=== PATIENT | male | born 1940 | race Caucasian/White ===

== ENCOUNTER 2018-04-14 18:40 | Inpatient (IN) | payer MEDICARE ==
[2018-04-14] MEDS ORDERED: NS 0.9% 1000 ML* 2,000 ML IV ONE (19:31)
--- NOTE | 2018-04-14 20:04 | RAD ---
HISTORY: Syncope, head injury COMPARISONS: None TECHNIQUE: Multiple contiguous axial CT scans were obtained of the head without intravenous contrast. FINDINGS: HEMORRHAGE/INFARCT: There is no hemorrhage or acute infarct. MASSES/SHIFT: There is no mass or shift. EXTRA-AXIAL SPACES: There are no extra-axial fluid collections. SULCI AND VENTRICLES: The sulci and ventricles are normal in size and position for the patient's stated age. CEREBRUM: There are no focal parenchymal abnormalities. BRAINSTEM: There are no focal parenchymal abnormalities. CEREBELLUM: There are no focal parenchymal abnormalities. VESSELS: The vessels are grossly normal. PARANASAL SINUSES: There is no abnormal fluid level within the right maxillary sinus. ORBITS: The orbits are unremarkable. BONES AND SOFT TISSUE: There is comminuted fractures through the right axilla that is not completely evaluated on the current examination. OTHER: None IMPRESSION: 1. RIGHT MAXILLARY FRACTURE NOT COMPLETELY EVALUATED ON THE CURRENT EXAMINATION. RECOMMEND CONSIDERATION OF CT OF THE FACIAL BONES. 2. NO ACUTE INTRACRANIAL PATHOLOGY
--- NOTE | 2018-04-14 20:07 | RAD ---
CLINICAL HISTORY: Abdominal pain, syncope, rule out abdominal aortic aneurysm COMPARISON: None TECHNIQUE: Multiple contiguous axial CT scans were obtained of the abdomen and pelvis, without intravenous contrast enhancement. Coronal and sagittal multiplanar reformations are submitted for review. Oral contrast was not administered. FINDINGS: The study is limited by the lack of intravenous contrast. This limits evaluation of the solid organs and vasculature. LUNG BASES: There is linear atelectasis of the right lower lobe. LIVER: There are low-attenuation lesions of the liver most consistent with hepatic cysts. BILE DUCTS: There is no intrahepatic or extrahepatic biliary dilatation. GALLBLADDER: The gallbladder is normal, without pericholecystic inflammatory change. PANCREAS: The pancreas is normal, without mass or ductal dilatation. SPLEEN: Normal in size and appearance. UPPER GI TRACT: Evaluation of the gastrointestinal tract is limited by incomplete gastric distention. The upper GI tract is unremarkable. SMALL BOWEL AND MESENTERY: The small bowel is normal in contour, course, and caliber. There is no obstruction or dilatation. COLON: The colon is normal in contour, course, caliber. There is no pericolonic inflammatory change. There is a tubular, vermiform, hollow viscus that is blind ending, and originates from the cecum, consistent with a normal appendix. There is no periappendiceal inflammatory change. This is best seen on coronal images 44 through 52. ADRENALS: Normal bilaterally. KIDNEYS: The kidneys are normal in shape, size, contour, and axis. There is no hydronephrosis or nephrolithiasis. BLADDER: The bladder is smooth in contour. PELVIC ORGANS: The prostate is diffusely enlarged. The seminal vesicles are symmetric. AORTA: There is calcific atherosclerotic disease of the abdominal aorta and its branches, without aneurysmal dilatation IVC: Unremarkable LYMPH NODES: There is no lymphadenopathy by size criteria. ABDOMINAL WALL: There is no evidence for abdominal wall hernia. BONES AND SOFT TISSUES: The patient is status post left hip arthroplasty. Degenerative changes are noted in the spine. OTHER: None IMPRESSION: ATHEROSCLEROSIS. NO ABDOMINAL AORTIC ANEURYSM. NO ACUTE NONCONTRAST CT PATHOLOGY OF THE VISUALIZED ABDOMEN OR PELVIS.
[2018-04-14] MEDS ORDERED: Morphine VIAL* 4 MG/ML VIAL (1 ml vial) IV ONE (20:21)
[2018-04-14 20:24] LABS: ABS Basophils 0.1 10^3/ul (0-0.2); ABS Eosinophils 0 10^3/ul (0-0.6); ABS Lymphocytes 0.7 10^3/ul (1.0-4.8); ABS Monocytes 1.5 10^3/ul (0-0.8); ABS Neutrophils 18.6 10^3/ul (1.5-7.7); ABS Nucleated RBC 0 10^3/ul; Eosinophil % 0.2 % (0-6); Hematocrit 38 % (42-52); Hemoglobin 13.3 g/dl (14.0-18.0); Lymphocyte % 3.5 % (25-47); Mean Corpuscular HGB Conc 35 g/dl (31-36); Mean Corpuscular Hemoglobin 31 pg (27-31); Mean Corpuscular Volume 88 fL (80-94); Mean Platelet Volume 7.2 um3 (7.4-10.4); Nucleated Red Blood Cells % 0; Platelet Count 185 10^3/ul (150-450); Red Cell Distribution Width 13 % (10.5-15); White Blood Count 20.9 10^3/ul (3.5-10.8)
[2018-04-14 20:43] LABS: EGFR Non-African American 49.7 (>60)
[2018-04-14 22:22] LABS: Urine Appearance Clear; Urine Blood 1+ (Negative); Urine Color Yellow; Urine Ketones Negative (Negative); Urine Protein Negative (Negative); Urine Specific Gravity 1.018 (1.010-1.030); Urine Urobilinogen Negative (Negative)
[2018-04-14] MEDS ORDERED: HYDROcodone/ACETAMIN 5-325 MG* 1 TAB PO PRN (22:48)
[2018-04-14] MEDS ORDERED: Senna TAB PO PRN (22:58)
[2018-04-14] MEDS ORDERED: Ondansetron 40 MG VIAL* 2 MG/ML 20 ML VIAL IV PRN (22:58)
[2018-04-14] MEDS ORDERED: Docusate CAP* 100 MG PO PRN (22:58)
[2018-04-14] MEDS ORDERED: Al Hydrox/Mg Hydrox/Simet LIQ* 30 ML UDC PO PRN (22:58)
[2018-04-14] MEDS ORDERED: Morphine VIAL* 4 MG/ML VIAL (1 ml vial) IV PRN (22:58)
--- NOTE | 2018-04-14 23:06 | ED ---
Gosia Acharya Julia, scribed for Juan Carlos Regalado MD on 04/14/18 at 1935 . Syncope/Near Syncope - HPI Summary HPI Summary: This patient is a 78 year old M BIBA to [facility] accompanied by his and children due to a syncopal event prior to arrival. Around 15:30 today he started feeling nauseous with abdominal pain. He took some Tums and Pepto- Bismol around 16:30 without relief. Later he felt the urge to vomit with retching and diaphoresis, but could not due to previous GERD surgery. He then lost consciousness, defecated himself ,and hit his face on the floor, resulting in significant epistaxis that is currently resolved. Patient reports right shoulder pain. Medications reviewed with patient. PMHx includes HTN, GERD, and chronic low back pain - History Of Current Complaint Time Seen by Provider: 04/14/18 19:23 Hx Obtained From: Patient Onset/Duration: Sudden Onset Timing: Frequency Of Episodes - 1 Context: Loss Of Consciousness Associated Head Trauma: Yes Associated Signs And Symptoms: Diarrhea, Diaphoresis, Head Trauma (Remote), Vomiting, Other - abdominla pain - Allergies/Home Medications Allergies/Adverse Reactions: Allergies Allergy/AdvReac Type Severity Reaction Status Date / Time No Known Allergies Allergy Verified 04/14/18 20:39 PMH/Surg Hx/FS Hx/Imm Hx Cardiovascular History: Reports: Hx Hypertension GI History: Reports: Hx Gastroesophageal Reflux Disease Musculoskeletal History: Reports: Hx Back Problems Infectious Disease History: Denies: Traveled Outside the [place] in Last 30 Days - Family History Known Family History: Positive: Hypertension - Social History Lives: With Family Review of Systems Positive: Skin Diaphoresis Positive: Abdominal Pain, Vomiting, Diarrhea, Nausea Positive: Myalgia All Other Systems Reviewed And Are Negative: Yes Physical Exam - Summary Physical Exam Summary: Appearance: Well-appearing, Well-nourished, lying in bed comfortably Skin: Warm, dry, no obvious rash Eyes: sclera anicteric, no conjunctiva pallor ENT: mucous membranes moist, pharynx appears normal, no septal hematoma, R periorbital hematoma Neck: Supple, nontender, good ROM Respiratory: Clear to auscultation, no signs of respiratory distress Cardiovascular: Normal S1, S2. No murmurs. Normal distal pulses in tibial and radial bilaterally. Abdomen: Soft, nontender, normal active bowel sounds present, no palpable masses Musculoskeletal: Strength/ROM Intact, pain by left shoulder blade, trace pitting edema in legs Neurological: A&Ox3, awake and alert, mentation is normal, speech is fluent and appropriate Psychiatric: affect is normal, does not appear anxious or depressed Triage Information Reviewed: Yes Vital Signs On Initial Exam: Initial Vitals Temp Pulse Resp BP Pulse Ox 37.1 C 92 18 155/56 96 04/14/18 19:43 04/14/18 19:43 04/14/18 19:43 04/14/18 19:43 04/14/18 19:43 Vital Signs Reviewed: Yes Diagnostics - Vital Signs Vital Signs Temp Pulse Resp BP Pulse Ox 04/14/18 21:00 74 16 95 04/14/18 20:52 74 17 141/72 94 04/14/18 20:40 16 04/14/18 20:21 77 17 152/70 96 04/14/18 19:43 37.1 C 92 18 155/56 96 - Laboratory Lab Results: Lab Results 04/14/18 04/14/18 04/14/18 Range/Units 20:14 20:14 20:14 WBC 20.9 H (3.5-10.8) 10^3/ul RBC 4.30 (4.0-5.4) 10^6/ul Hgb 13.3 L (14.0-18.0) g/dl Hct 38 L (42-52) % MCV 88 (80-94) fL MCH 31 (27-31) pg MCHC 35 (31-36) g/dl RDW 13 (10.5-15) % Plt Count 185 (150-450) 10^3/ul MPV 7.2 L (7.4-10.4) um3 Neut % (Auto) 89.1 H (38-83) % Lymph % (Auto) 3.5 L (25-47) % Burt % (Auto) 6.9 (0-7) % Eos % (Auto) 0.2 (0-6) % Baso % (Auto) 0.3 (0-2) % Absolute Neuts (auto) 18.6 H (1.5-7.7) 10^3/ul Absolute Lymphs (auto) 0.7 L (1.0-4.8) 10^3/ul Absolute Monos (auto) 1.5 H (0-0.8) 10^3/ul Absolute Eos (auto) 0 (0-0.6) 10^3/ul Absolute Basos (auto) 0.1 (0-0.2) 10^3/ul Absolute Nucleated RBC 0 10^3/ul Nucleated RBC % 0 Sodium 139 (139-145) mmol/L Potassium 3.6 (3.5-5.0) mmol/L Chloride 103 (101-111) mmol/L Carbon Dioxide 26 (22-32) mmol/L Anion Gap 10 (2-11) mmol/L BUN 36 H (6-24) mg/dL Creatinine 1.39 H (0.67-1.17) mg/dL Est GFR ( Amer) 63.9 (>60) Est GFR (Non-Af Amer) 49.7 (>60) BUN/Creatinine Ratio 25.9 H (8-20) Glucose 153 H (70-100) mg/dL Lactic Acid 2.3 H* (0.5-2.0) mmol/L Calcium 8.7 (8.6-10.3) mg/dL Magnesium 1.8 L (1.9-2.7) mg/dL Total Bilirubin 0.40 (0.2-1.0) mg/dL AST 22 (13-39) U/L ALT 17 (7-52) U/L Alkaline Phosphatase 49 (34-104) U/L Troponin I 0.00 (<0.04) ng/mL Total Protein 6.4 (6.4-8.9) g/dL Albumin 3.8 (3.2-5.2) g/dL Globulin 2.6 (2-4) g/dL Albumin/Globulin Ratio 1.5 (1-3) TSH 1.19 (0.34-5.60) mcIU/mL Urine Color Urine Appearance Urine pH (5-9) Ur Specific [place] (1.010-1.030) Urine Protein (Negative) Urine Ketones (Negative) Urine Blood (Negative) Urine Nitrate (Negative) Urine Bilirubin (Negative) Urine Urobilinogen (Negative) Ur Leukocyte Esterase (Negative) Urine WBC (Auto) (Absent) Urine RBC (Auto) (Absent) Urine Bacteria (Absent) Hyaline Casts (Absent) Urine Glucose (Negative) 04/14/18 Range/Units 22:09 WBC (3.5-10.8) 10^3/ul RBC (4.0-5.4) 10^6/ul Hgb (14.0-18.0) g/dl Hct (42-52) % MCV (80-94) fL MCH (27-31) pg MCHC (31-36) g/dl RDW (10.5-15) % Plt Count (150-450) 10^3/ul MPV (7.4-10.4) um3 Neut % (Auto) (38-83) % Lymph % (Auto) (25-47) % Burt % (Auto) (0-7) % Eos % (Auto) (0-6) % Baso % (Auto) (0-2) % Absolute Neuts (auto) (1.5-7.7) 10^3/ul Absolute Lymphs (auto) (1.0-4.8) 10^3/ul Absolute Monos (auto) (0-0.8) 10^3/ul Absolute Eos (auto) (0-0.6) 10^3/ul Absolute Basos (auto) (0-0.2) 10^3/ul Absolute Nucleated RBC 10^3/ul Nucleated RBC % Sodium (139-145) mmol/L Potassium (3.5-5.0) mmol/L Chloride (101-111) mmol/L Carbon Dioxide (22-32) mmol/L Anion Gap (2-11) mmol/L BUN (6-24) mg/dL Creatinine (0.67-1.17) mg/dL Est GFR ( Amer) (>60) Est GFR (Non-Af Amer) (>60) BUN/Creatinine Ratio (8-20) Glucose (70-100) mg/dL Lactic Acid (0.5-2.0) mmol/L Calcium (8.6-10.3) mg/dL Magnesium (1.9-2.7) mg/dL Total Bilirubin (0.2-1.0) mg/dL AST (13-39) U/L ALT (7-52) U/L Alkaline Phosphatase (34-104) U/L Troponin I (<0.04) ng/mL Total Protein (6.4-8.9) g/dL Albumin (3.2-5.2) g/dL Globulin (2-4) g/dL Albumin/Globulin Ratio (1-3) TSH (0.34-5.60) mcIU/mL Urine Color Yellow Urine Appearance Clear Urine pH 5.0 (5-9) Ur Specific [place] 1.018 (1.010-1.030) Urine Protein Negative (Negative) Urine Ketones Negative (Negative) Urine Blood 1+ A (Negative) Urine Nitrate Negative (Negative) Urine Bilirubin Negative (Negative) Urine Urobilinogen Negative (Negative) Ur Leukocyte Esterase Negative (Negative) Urine WBC (Auto) Absent (Absent) Urine RBC (Auto) Trace(0-2/hpf) (Absent) Urine Bacteria Absent (Absent) Hyaline Casts Present A (Absent) Urine Glucose Negative (Negative) Result Diagrams: 04/14/18 20:14 04/14/18 20:14 Lab Statement: Any lab studies that have been ordered have been reviewed, and results considered in the medical decision making process. - CT Brain CT CT Interpretation Completed By: Radiologist - 1. RIGHT MAXILLARY FRACTURE NOT COMPLETELY EVALUATED ON THE CURRENT EXAMINATION. RECOMMEND CONSIDERATION OF CT OF THE FACIAL BONES. 2. NO ACUTE INTRACRANIAL PATHOLOGY Dr. Regalado has reviewed this report. A/P CT CT Interpretation Completed By: Radiologist - ATHEROSCLEROSIS. NO ABDOMINAL AORTIC ANEURYSM. NO ACUTE NONCONTRAST CT PATHOLOGY OF THE VISUALIZED ABDOMEN OR PELVIS. Dr. Regalado has reviewed this report. - EKG 1953 Cardiac Rate: NL - at 78 BPM EKG Rhythm: Sinus Rhythm EKG Interpretation: see comparison EKG Comparison: Other - P waves, QRS complex, and T waves are within normal limits, T waves and intervals are normal, no ischemic changes. This is a normal EKG Course/Dx - Diagnoses Provider Diagnoses: Syncope, Facial contusion, Upper back strain - Physician Notifications Discussed Care of Patient With: Jessica Hernandez Time Discussed With Above Provider: 21:41 Instructed by Provider To: Admit As Inpatient Discharge - Sign-Out/Discharge Documenting (check all that apply): Discharge/Admit/Transfer - Discharge Plan Condition: Guarded Disposition: ADMITTED TO [facility] Referrals: No Primary Care Phys,NOPCP [Primary Care Provider] - - Billing Disposition and Condition Condition: GUARDED Disposition: [facility] [place] The documentation as recorded by the Gosia salcido Julia accurately reflects the service I personally performed and the decisions made by me, Juan Carlos Regalado MD.
--- NOTE | 2018-04-15 03:30 | HP ---
CC: , [facility] HISTORY AND PHYSICAL: DATE OF ADMISSION: 04/14/18 TIME OF EVALUATION: 2300. PRIMARY CARE PROVIDER: , [facility] CHIEF COMPLAINT: Syncope. HISTORY OF PRESENT ILLNESS: This is a 78-year-old male with a past medical history of hypertension and asthma, who presents to the emergency room after having a syncopal episode. The patient states he was in his usual state of health when he had lunch with friends. About an hour and a half later, began having significant indigestion and nausea. He took Tums and Rolaids with no relief. He felt like he needed to throw up. His was going to the store to get [employer], he went to go throw up, but he has a history of having a fundoplication and was told he would not be able to throw up, became hot, weak, and the next thing he knew, he woke up and he was passed out on the floor with blood everywhere. His states that he kept waking up, talking to her, and then passing out again several times while he was on the ground. He also defecated when he lost consciousness. He states he had a large normal bowel movement right just prior to his loss of consciousness, otherwise no diarrhea. He is no longer nauseated. He denies any chest pain or shortness of breath. No abdominal pain, no URI symptoms, no urinary symptoms, no rash. He is complaining of his left shoulder blade, his right eye, and headache. He is having double vision in the right eye. Otherwise, review of systems negative. The patient states he had a stress test maybe 5 to 10 years ago. In the emergency room, the patient had labs, imaging, he was given morphine and a liter of fluid, and was referred to the hospitalist service for further evaluation. PAST MEDICAL HISTORY: 1. BPH. 2. GERD. 3. Hypertension. 4. History of fundoplication. 5. Asthma. 6. Hard of hearing. MEDICATIONS: 1. Finasteride 5 mg p.o. daily. 2. Albuterol 2 puffs b.i.d. 3. Flovent 1 puff b.i.d. 4. Hydrocodone 5 mg/325 four times a day. 5. Hydrochlorothiazide 25 mg p.o. q.a.m. 6. Enalapril 20 mg p.o. q.a.m. 7. Rabeprazole 20 mg daily. 8. Several multivitamins. ALLERGIES: No known drug allergies. FAMILY HISTORY: Mother in her 50s from cardiac causes and several aunts as well from cardiac causes in their 50s. His father from complications related to polio. SOCIAL HISTORY: The patient lives at home with his , Juliette, who is his healthcare proxy. He quit smoking in 1977, smoked for about 15 years a pack per day. No alcohol use or illicit drug use. 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 CODE STATUS: Full code. REVIEW OF SYSTEMS: A 14-point review of systems as mentioned in the HPI, otherwise negative. PHYSICAL EXAMINATION GENERAL: No acute distress, resting comfortably with his at the bedside. VITAL SIGNS: Temp is 98.7, pulse rate 74, respiratory rate 16, oxygen saturation 95% on room air, and blood pressure 141/72. HEENT: Head: Normocephalic. Pupils are equal and reactive. He has significant ecchymosis over his right eye with mild conjunctival injection on his right eye. His extraocular muscles are intact. Oropharynx: Mucous membranes are moist. NECK: Supple, no adenopathy. RESPIRATORY: Clear to auscultation. No wheezing, rhonchi, or rales. CARDIAC: Regular rate and rhythm. Soft systolic murmur heard throughout. ABDOMEN: Soft, nontender, nondistended. EXTREMITIES: No clubbing, cyanosis, or edema. +1 DPs. NEUROLOGIC: He is alert and oriented x3. No gross focal neurologic deficits. His right eye, he is experiencing double vision, but extraocular muscles appear to be intact. DIAGNOSTIC STUDIES/LAB DATA: White count 20.9, hemoglobin 13.3, hematocrit 38 , platelets 185. Sodium 139, potassium 3.6, chloride 103, bicarb 26, BUN 36, creatinine 1.39, glucose 153, lactic acid 2.3, magnesium 1.8. Troponin is 0. TSH 1.19. Urinalysis +1 blood. Radiographic data: CT of the brain: Right maxillary fracture, not completely evaluated on the current exam. No acute intracranial pathology. EKG: Shows normal sinus rhythm with first-degree heart block. Abdominal and pelvis CT shows atherosclerosis, no abdominal aortic aneurysm, no acute pathology visualized of the abdomen and pelvis. Shoulder x-ray and spine x-ray per ER doctor, Dr. Regalado, is unremarkable. ASSESSMENT AND PLAN: This is a 78-year-old male with past medical history of hypertension and benign prostatic hyperplasia who presents to the emergency room after having a syncopal episode. 1. Syncope. Assessment: This is in the setting of nausea, indigestion with retching. I suspect this syncope was related to vasovagal episode; however, he is elderly with cardiac history and had several syncopal episodes after his initial one with a significant event. Plan: Not unreasonable to admit him overnight for observation, continue him on telemetry. Neuro checks. I will order an echocardiogram and continue to trend his troponin. 2. Elevated creatinine. I do not have a baseline creatinine to suggest this is acute kidney injury. It could be prerenal azotemia in the setting of hypovolemia. He has not eaten since lunchtime. He is also on hydrochlorothiazide and enalapril. Plan: We will give him IV fluids, repeat his labs. Hold his enalapril and hydrochlorothiazide. 3. Leukocytosis. I suspect this episode is secondary to gastroenteritis with his acute onset of nausea, dry heaving, with no other focal findings on exam. Plan: We will monitor and repeat his labs in the morning. 4. Question of a right maxillary fracture. Assessment and plan: We will check a facial CT to further evaluate this. His extraocular muscles appear intact at this time, no hyphema. He does have diplopia. Consider Ophthalmology or ENT evaluation depending on these results and determining if prophylactic antibiotic is indicated. CHRONIC MEDICAL PROBLEMS: 1. Hypertension. As mentioned, we will hold his antihypertensives for now. 2. Chronic pain. We will continue his hydrocodone and morphine for breakthrough pain. 3. Asthma. Continue his Flovent and his albuterol. 4. BPH. Continue his finasteride. 5. GERD. We will place him on omeprazole and place him on his rabeprazole. 6. FEN. Place him on a regular diet with IV fluids going. 7. DVT prophylaxis. The patient's scores moderate risk. Place him on heparin subcu t.i.d. 8. Code status. Full code. PATIENT TIME: Greater than 60 minutes spent doing history and physical, more than half time spent in direct patient contact. [id number]/[facility] #: [id number] STEPH
[2018-04-15] MEDS: Heparin VIAL(*) 5000 UNITS/ML VIAL (FIVE THOUSAND) SUBCUT SCH ×3 (06:15→20:31)
[2018-04-15] MEDS: Omeprazole CAP* 20 MG PO SCH (06:15)
[2018-04-15 07:03] LABS: EGFR Non-African American 72.6 (>60)
[2018-04-15 07:16] LABS: ABS Basophils 0 10^3/ul (0-0.2); ABS Eosinophils 0 10^3/ul (0-0.6); ABS Lymphocytes 1.3 10^3/ul (1.0-4.8); ABS Monocytes 0.9 10^3/ul (0-0.8); ABS Neutrophils 12.2 10^3/ul (1.5-7.7); ABS Nucleated RBC 0 10^3/ul; Eosinophil % 0.1 % (0-6); Hematocrit 36 % (42-52); Hemoglobin 12.5 g/dl (14.0-18.0); Lymphocyte % 9.2 % (25-47); Mean Corpuscular HGB Conc 35 g/dl (31-36); Mean Corpuscular Hemoglobin 31 pg (27-31); Mean Corpuscular Volume 87 fL (80-94); Mean Platelet Volume 7.4 um3 (7.4-10.4); Nucleated Red Blood Cells % 0; Platelet Count 192 10^3/ul (150-450); Red Blood Count 4.07 10^6/ul (4.0-5.4); Red Cell Distribution Width 13 % (10.5-15); White Blood Count 14.5 10^3/ul (3.5-10.8)
--- NOTE | 2018-04-15 07:43 | RAD ---
INDICATION: Left shoulder pain COMPARISON: None TECHNIQUE: Routine frontal, Y and axial views were obtained. FINDINGS: There is moderate AC joint osteoarthritis. There is advanced glenohumeral osteoarthritis. The shoulder is high riding compatible with a rotator cuff tear. There is no acute change IMPRESSION: MODERATE TO ADVANCED OSTEOARTHRITIS. ROTATOR CUFF TEAR.
--- NOTE | 2018-04-15 07:45 | RAD ---
HISTORY: Syncope, pain in thoracic spine COMPARISONS: None VIEWS: 4, Frontal and lateral views of the thoracic spine. FINDINGS: ALIGNMENT: The alignment is normal. VERTEBRAL BODIES: There is diffuse osteopenia. Is multilevel anterolateral bridging marginal osteophyte formation. The vertebral bodies are preserved in height. JOINTS: Unremarkable. INTERVERTEBRAL DISCS: There is diffuse loss of intervertebral disc height. SOFT TISSUE: Unremarkable OTHER: The visualized lungs are clear. IMPRESSION: 1. OSTEOPENIA. 2. DEGENERATIVE CHANGES.
[2018-04-15] MEDS: Finasteride TAB* 5 MG PO SCH (07:46)
--- NOTE | 2018-04-15 08:00 | RAD ---
HISTORY: Right maxillary fracture COMPARISONS: Head CT dated April 14, 2018 TECHNIQUE: Multiple contiguous axial CT scans were obtained of the face without intravenous contrast, with coronal and sagittal multiplanar reformations. FINDINGS: BONES: There is nondisplaced fracture of the right zygomatic arch. There are minimally comminuted fractures involving the posterior and medial fontanez of the right maxilla. This extends posteriorly to involve the right orbit best seen on coronal image 40, without displacement.. There is diffuse osteopenia. Degenerative changes are noted of the cervical spine. There is osteoarthritis of the temporomandibular joints. ORBITS: The globes are round. The optic nerves are symmetric. The extraocular musculature is normal. There is no post septal or intraconal inflammatory change. There is no retrobulbar hematoma. The right orbital floor fracture is nondisplaced without extension of orbital contents. Fracture line. PARANASAL SINUSES: There is opacification of the right maxillary sinus with a fluid-fluid level suggestive of blood within the sinus. There is mucosal thickening and opacification of the ethmoid air cells. BRAIN AND SOFT TISSUE: There is associated soft tissue swelling with a premaxillary hematoma on the right. OTHER: None. IMPRESSION: FRACTURES OF THE RIGHT ZYGOMATIC ARCH AND RIGHT MAXILLA, INCLUDING THE FLOOR OF THE RIGHT ORBIT, WITH COMMUNICATION INTO THE RIGHT MAXILLARY SINUS.
[2018-04-15] MEDS ORDERED: Albuterol HFA INHALER* 8 gm MDI INH SCH (09:00)
[2018-04-15] MEDS: Albuterol HFA INHALER* 8 gm MDI INH SCH ×2 (09:59→12:11)
[2018-04-15] MEDS ORDERED: Perflutren Lipid Microsphere* 3 ML VIAL ONE (10:05)
[2018-04-15] MEDS: Acetaminophen TAB* 325 MG PO PRN ×2 (11:25→19:42)
--- NOTE | 2018-04-15 17:12 | ECHO ---
Patient: GRISELDA HOLBROOK [facility] Rec#: [id number] : 1940 Date: 04/15/2018 Age: 78y Height: 177.8 cm / 70.0 in Weight: 110.5 kg / 243.5 lbs Sex: M BSA: 2.27 Room#: [facility] Admit Date#: 04/14/2018 Type: Inpatient Referring: Jessica Hernandez Reading: Renny Zapata DO Oil Extractor: Maryellen Li RN RDCS Transthoracic Echocardiogram Indication: Syncope BP: 146/67 HR: 71 Rhythm: NSR Findings History: HTN, asthma, former smoker, GERD, dilated thoracic aorta, obesity Technical Comments: The study is technically limited due to poor acoustic windows. The study is technically limited due to patient body habitus. The study is technically limited due to the patient's smoking history. Completed at 1112. Left Ventricle: The left ventricular chamber size is normal. Mild concentric left ventricular hypertrophy is observed. Global left ventricular wall motion and contractility are within normal limits. The left ventricle appears hyperdynamic. The estimated ejection fraction is greater than 65%. The assessment of diastolic function is non-diagnostic. Left Atrium: The left atrial chamber size is normal. Right Ventricle: The right ventricle is not well visualized. Right Atrium: The right atrial cavity size is normal. Aortic Valve: The aortic valve structure is not well visualized. There is no evidence of aortic regurgitation. There is no evidence of aortic stenosis. Mitral Valve: There is mitral annular calcification. The mitral valve leaflets are mildly thickened. There is no evidence of mitral regurgitation. There is no evidence of mitral stenosis. Tricuspid Valve: The tricuspid valve structure is not well visualized. There is no evidence of tricuspid valve regurgitation. There is no tricuspid stenosis. Pulmonic Valve: The pulmonic valve structure is not well visualized. Pericardium: There is no significant pericardial effusion. Aorta: The aorta is not well visualized. There is mild dilatation of the ascending aorta. There is no dilatation of the aortic arch. There is mild dilatation of the aortic root. Pulmonary Artery: The main pulmonary artery is not well visualized. Venous: The inferior vena cava is dilated. There is an approximate 50% respiratory change in the inferior vena cava dimension. Contrast: Definity was used to optimize study. A total of 5 ml of diluted Definity was given IV. Intravenous contrast was used to enhance endocardial border definition. Conclusions The left ventricular chamber size is normal. Mild concentric left ventricular hypertrophy is observed. The left ventricle appears hyperdynamic. The estimated ejection fraction is greater than 70%. Global left ventricular wall motion and contractility are within normal limits. The left atrial chamber size is normal. Right ventricle not well visualized. There is mild dilatation of the ascending aorta at 4.1 cm on visualized portion. More distal portion of ascending aorta not well visualized. The pulmonic valve structure is not well visualized. No other significant valvular abnormalities noted on technically difficult imaging None prior for comparison at time of interpretation Measurements Name Value Normal Range RVDdMajor (2D) 4.1 cm (2.2 - 4.4) IVSd (2D) 1.4 cm (0.6 - 1) LVPWd (2D) 1.1 cm (0.6 - 1) LVIDd (2D) index 1.4 cm/m2 - Ao root diameter (2D) 3.9 cm (2.1 - 3.5) Ascending Ao 4.1 cm (2.1 - 3.4) Aortic arch 2.4 cm (1.8 - 3.4) LA dimension (AP) 2D 3.4 cm (2.3 - 3.8) Name Value Normal Range LA ESV SP 4CH (A/L) 27 ml - LA ESV SP 2CH (A/L) 36 ml - LA ESV BP (A/L) 32 ml - LA ESV BP (A/L) index 14.1 ml/m2 - LA ESV SP 4CH (MOD) 24 ml - LA ESV SP 2CH (MOD) 33 ml - Name Value Normal Range MV E-wave Vmax 0.74 m/sec - MV deceleration time 300 msec - MV A-wave Vmax 1 m/sec - MV E:A ratio 0.73 ratio - LV septal e' Vmax 0.06 m/sec - LV lateral e' Vmax 0.09 m/sec - LV E:e' septal ratio 12.3 ratio - LV E:e' lateral ratio 8.2 ratio - Name Value Normal Range AV Vmax 1.5 m/sec - AV VTI 32.4 cm - AV peak gradient 9.5 mmHg - AV mean gradient 6.1 mmHg - LVOT Vmax 1.1 m/sec - LVOT VTI 22 cm - LVOT peak gradient 4.7 mmHg - LVOT mean gradient 2.7 mmHg - TORRES Vmax 0.82 m/sec - Name Value Normal Range IVC diameter 2.2 cm - Name Value Normal Range PV Vmax 0.67 m/sec -
[2018-04-15] MEDS: Albuterol HFA INHALER* 8 gm MDI INH PRN (17:33)
[2018-04-15] MEDS ORDERED: Mometasone 220 MCG MDI INH SCH (18:00)
--- NOTE | 2018-04-15 18:29 | PN ---
Hospitalist Progress Note Date of Service: 04/15/18 Pt seen and examined. Meds and labs reviewed. ROS: Complains of double vision on Right eye and requests Ophthalmology consult. Denied SINGH/dizziness, F/C, N/V, CP, SOB, increased cough, sputum production, abd pain, diarrhea, constipation, dysuria, myalgias, arthralgias, throat pain, and new skin lesions. The rest of the 14 point ROS are unremarkable. PHYSICAL EXAM: GEN APPEARANCE: Awake, not in acute distress HEENT: NC/multiple facial bruises, worse on right than on left, PERRLA, moist oral mucosa, (-) throat erythema NECK: Soft, supple, (-) cervical LAD, (-)JVD HEART: S1S2 WNL, RRR, No MRG CHEST: CTA, BL, GAE, No W/R/R ABD: Soft, ND/NT, NABS 4x Q EXT: No C/C/E SKIN: Warm to touch PSYCH: No active psychosis, hallucinations, depression, SI/HI ASSESSMENT AND PLAN: #Syncope: -Likely vasovagal that was preceded by a viral prodrome -Echo and shows preserved EF and wall motion - CT of brain shows NAD -Will order BL carotid dopplers #Right Zygomatic arch and maxillary fractures: -Has been discussed with both ENT during admission as well as Plastic Surgery (spoke with Dr. Smith), both of whom mentions that this type of nondisplaced fracture is rarely corrected surgically #Double vision: -Spoke with Dr. Padilla who mentioned he will review the imaging and his records but feels this is unlikely due to glaucoma -Mentions at this time, he would prefer to see pt as outpatient but to call him if anything changeswill defer. #TRENT: -Possibly due to vomiting? -Improved with hydration -Possibly mild pre-renal due to vaso-vagal syncope #Leukocytosis: -Likely reactive -Continue watchful waiting #DVTp: -Continue heparin SQ #Dispo: -As above
[2018-04-16] MEDS: Heparin VIAL(*) 5000 UNITS/ML VIAL (FIVE THOUSAND) SUBCUT SCH ×2 (05:52→17:07)
[2018-04-16] MEDS: Acetaminophen TAB* 325 MG PO PRN ×2 (05:53→10:19)
[2018-04-16] MEDS: Omeprazole CAP* 20 MG PO SCH (06:54)
--- NOTE | 2018-04-16 08:03 | RAD ---
HISTORY: Cough COMPARISONS: None VIEWS: 2: frontal portable view of the chest at 5:25 AM. The patient is slightly obliqued to the left. FINDINGS: LINES AND TUBES: None. CARDIOMEDIASTINAL SILHOUETTE: The aorta is tortuous. The cardiomediastinal silhouette is otherwise normal for portable technique. PLEURA: The costophrenic angles are sharp. No pleural abnormalities are noted. LUNG PARENCHYMA: The lungs are clear. ABDOMEN: The upper abdomen is clear. There is no subphrenic gas. BONES AND SOFT TISSUES: Degenerative changes are noted of the shoulders and spine. IMPRESSION: NO ACTIVE CARDIOPULMONARY DISEASE.
[2018-04-16] MEDS: Finasteride TAB* 5 MG PO SCH (08:36)
[2018-04-16] MEDS: Albuterol HFA INHALER* 8 gm MDI INH PRN (09:10)
--- NOTE | 2018-04-16 10:58 | RAD ---
HISTORY: Syncope COMPARISONS: None TECHNIQUE: Multiple transverse and longitudinal ultrasound images were obtained of the carotid and vertebral arteries bilaterally, using grayscale, color Doppler, and spectral Doppler imaging. Images are submitted for review on April 16, 2018. FINDINGS: Measurement of carotid stenosis is based on flow velocity parameters that correlate the residual internal carotid artery diameter with [place] Symptomatic Carotid Endarterectomy Trial (NASCET)-based stenosis levels. RIGHT: Intima: There is diffuse intimal thickening with more focal atheroma formation at the bifurcation. Velocities: Right internal carotid artery maximum peak systolic velocity: 116 cm/s Right common carotid artery maximum peak systolic velocity: 117 cm/s Right internal carotid artery/common carotid artery ratio: 1 Waveforms: There is no spectral broadening. Right Vertebral: The right vertebral artery flow is antegrade. LEFT: Intima: There is diffuse intimal thickening with more focal atheroma formation at the bifurcation. Velocities: Left internal carotid artery maximum peak systolic velocity: 93 cm/s Left common carotid artery maximum peak systolic velocity: 118 cm/s Left internal carotid artery/common carotid artery ratio: 0.8 Waveforms: There is no spectral broadening. Left Vertebral: The left vertebral artery flow is antegrade. OTHER FINDINGS: None. IMPRESSION: 1. ATHEROMATOUS DISEASE. 2. NO HEMODYNAMICALLY SIGNIFICANT STENOSIS OF THE RIGHT INTERNAL CAROTID ARTERY BY FLOW VELOCITY MEASUREMENTS. THIS CORRESPONDS TO A LUMINAL DIAMETER OF LESS THAN 50% STENOSIS BY NASCET CRITERIA. 3. NO HEMODYNAMICALLY SIGNIFICANT STENOSIS OF THE LEFT INTERNAL CAROTID ARTERY BY FLOW VELOCITY MEASUREMENTS. THIS CORRESPONDS TO A LUMINAL DIAMETER OF LESS THAN 50% STENOSIS BY NASCET CRITERIA. CPT II Codes: 3100F
[2018-04-16 11:15] LABS: Hematocrit 34 % (42-52); Hemoglobin 11.9 g/dl (14.0-18.0); Mean Corpuscular HGB Conc 35 g/dl (31-36); Mean Corpuscular Hemoglobin 31 pg (27-31); Mean Corpuscular Volume 88 fL (80-94); Mean Platelet Volume 6.9 um3 (7.4-10.4); Platelet Count 165 10^3/ul (150-450); Red Blood Count 3.82 10^6/ul (4.0-5.4); Red Cell Distribution Width 13 % (10.5-15); White Blood Count 10.7 10^3/ul (3.5-10.8)
[2018-04-16 11:24] VITALS: BP 146/72
[2018-04-16 11:32] LABS: EGFR Non-African American 77.1 (>60)
--- NOTE | 2018-04-17 11:04 | DS ---
CC: Dr. Christian"... DISCHARGE SUMMARY: DATE OF ADMISSION: 04/14/18 DATE OF DISCHARGE: 04/16/18 PRIMARY CARE PROVIDER: Dr. Christian." PRINCIPAL DIAGNOSIS: Probable vasovagal syncope with resultant fall and maxilla /zygomatic arch fracture. SECONDARY DIAGNOSES: 1. Benign prostatic hypertrophy. 2. Gastroesophageal reflux disease. 3. Hypertension. 4. Asthma. DISCHARGE MEDICATIONS: 1. Flovent 1 puff inhaled twice daily. 2. Albuterol 2 puffs inhaled q.6 hours p.r.n. shortness of breath. 3. Proscar 5 mg p.o. daily. 4. AcipHex 20 mg p.o. daily. 5. [place] 5/325 one tab p.o. 4 times daily. 6. Enalapril 20 mg p.o. daily. HOSPITAL COURSE: Mr. To is a 78-year-old male who presented to the emergency room on 04/14/18 after suffering from a syncopal episode. The patient stated that he had been in his usual state of health when he had lunch with friends. About an hour and a half later, he began to have significant indigestion and nausea. He felt as if he was going to throw up. The patient, however, given his history of fundoplication, was not able to throw up. He then became hot, weak, and the next thing he knew he woke up passed out on the floor with blood everywhere. The patient's reported waking him up numerous times and then passing out again several times. He also defecated when he lost consciousness. The patient was brought to the emergency room where he was found to have fractures of the right zygomatic arch and right maxilla including the floor of the right orbit with communication into the right maxillary sinus. The patient was monitored on telemetry and underwent CT brain, carotid Dopplers, and echocardiogram, all of which did not reveal any significant findings. He had no further episodes of syncope. It was felt that the syncope was likely vasovagal in nature related to the feeling of needing to throw up. In terms of the fractures, consultation via phone was made with both Ear, Nose, and Throat and Plastic Surgery. Both relayed that the fractures are nonsurgical. The patient did have double vision on admission, which is resolved by the time of discharge. He has full extraocular movements of the right eye. He states that he will get follow up with his usual ophthalmology group. On the day of discharge, the patient is awake, alert, and oriented, sitting up in bed, feeling well. Vital signs are stable and he is afebrile. His cardiac exam reveals normal S1, S2 with regular rate and rhythm and no lower extremity edema. His lungs are clear to auscultation bilaterally and his abdomen is soft, nontender, nondistended. Patient ambulated in the hallway without any symptoms or concerns on telemetry. At this point, it was felt the patient is stable for discharge home. FOLLOWUP CONCERNS: The patient is being discharged home today 04/16/18. ACTIVITY LEVEL: As tolerated. DIET: Heart healthy. CONDITION ON DISCHARGE: Stable. The patient has been instructed to return to the emergency room if he has any issues with vision or pain in his eye or any other concerning symptoms. The patient has been asked to follow up with his primary care provider in the next 5 to 7 days. TIME SPENT: 35 minutes was spent discharging this patient. [id number]/[facility] #: [id number] STEPH
== END 2018-04-16 14:30 | disposition home or self-care (01) | DRG 158 ==
LOC: ED 18:40 → MEDTELE 22:58 → OBSVTOIN 04-15 12:00
PROVIDERS: ADMIT Pediatrics; ATTEND Hospitalist
DX: S02.40CA Maxillary fracture, right side, initial encounter for closed fracture (principal); S02.31XA Fracture of orbital floor, right side, initial encounter for closed fracture; N17.9 Acute kidney failure, unspecified; S02.40EA Zygomatic fracture, right side, initial encounter for closed fracture; W17.89XA Other fall from one level to another, initial encounter; Y92.009 Unspecified place in unspecified non-institutional (private) residence as the place of occurrence of the external cause; R55 Syncope and collapse; H53.2 Diplopia; D72.829 Elevated white blood cell count, unspecified; I10 Essential (primary) hypertension; J45.909 Unspecified asthma, uncomplicated; N40.0 Benign prostatic hyperplasia without lower urinary tract symptoms; K21.9 Gastro-esophageal reflux disease without esophagitis; Z79.899 Other long term (current) drug therapy; Z82.49 Family history of ischemic heart disease and other diseases of the circulatory system; Z87.891 Personal history of nicotine dependence
CPT/HCPCS: 36415; 70450; 70486; 71045; 72070; 74176; 80048; 80053; 80061; 81003; 81015; 83605; 83735; 84443; 84484; 85025; 85027; 93005; 93306; 93880; 94640; 99284; A9270-GY; C8929; J1644; J2270